=== PATIENT | female | born 1935 | race Caucasian/White ===

== ENCOUNTER 2016-10-19 12:35 | Day surgery (SDC) | payer MEDICARE ==
[2016-10-17 09:44] VITALS: BMI 24.6
[~2016-10-19 12:35] MED LIST: LACTATED RINGERS 1,000 ML IV SCH; LIDOCAINE 1% 20 ML VIAL (10MG/ML) FOR IV START INTRADERMA PRN
[2016-10-19 12:51] VITALS: TEMP 97
[2016-10-19] MEDS ORDERED: GLUCAGON 1 MG/ML VIAL ONE (13:40)
[2016-10-19] MEDS ORDERED: PROPOFOL 10 MG/ML 20 ML VIAL IV ONE (13:40)
--- NOTE | 2016-10-19 13:40 | P.GSHP ---
History of Present Illness H&P Date: 10/19/16 Chief Complaint: GERD, GI bleed This is a 81-year-old female referred from Dr. Nino Dominguez. Patient presents today for EGD and colonoscopy. She's had issues with GERD and melanotic stools. - Constitutional Constitutional: Reports as per HPI Past Medical History Past Medical History: Hyperlipidemia, Hypertension Additional Past Medical History / Comment(s): MACULAR DEGENERATION (DRY), History of Any Multi-Drug Resistant Organisms: None Reported Past Surgical History: Breast Surgery, Tonsillectomy Additional Past Surgical History / Comment(s): BREAST BIOPSY, surgery for hiatal hernia, jazmin cataracts Past Anesthesia/Blood Transfusion Reactions: No Reported Reaction Past Psychological History: No Psychological Hx Reported Smoking Status: Never smoker Past Alcohol Use History: Occasional Past Drug Use History: None Reported - Past Family History Brother(s) Family Medical History: Cancer Father Additional Family Medical History / Comment(s): POSSIBLE PE Medications and Allergies Home Medications Medication Instructions Recorded Confirmed Type Ascorbic Acid [Vitamin C] 500 mg PO DAILY 02/20/15 10/19/16 History Losartan-Hctz 50-12.5 mg [Hyzaar 1 each PO QAM 02/20/15 10/19/16 History 50-12.5] Multivitamins, Thera [Multivitamin 1 each PO DAILY@1200 02/20/15 10/19/16 History (formulary)] Simvastatin [Zocor] 20 mg PO HS 02/20/15 10/19/16 History Niacin 500 mg PO DAILY 03/19/15 10/19/16 History Aspirin 325 mg PO DAILY 10/17/16 10/19/16 History Calcium Carbonate [Calcium] 600 mg PO DAILY 10/17/16 10/19/16 History Magnesium Oxide [Magnesium] 500 mg PO DAILY 10/17/16 10/19/16 History Vit C/E/Zn/Coppr/Lutein/Zeaxan 1 each PO DAILY 10/17/16 10/19/16 History [Preservision Areds 2 Softgel] Allergies Allergy/AdvReac Type Severity Reaction Status Date / Time No Known Allergies Allergy Verified 10/17/16 09:35 Surgical - Exam Vital Signs Temp Pulse Resp BP Pulse Ox 97.0 F L 84 16 141/81 97 10/19/16 12:50 10/19/16 12:50 10/19/16 12:50 10/19/16 12:50 10/19/16 12:50 - General well developed, no distress - Eyes PERRL - ENT normal pinna - Neck no masses - Respiratory normal expansion - Cardiovascular Rhythm: regular - Abdomen Abdomen: soft, non tender Assessment and Plan Plan: GERD, GI bleed. We'll perform colonoscopy.
--- NOTE | 2016-10-19 14:06 | P.OP ---
Date of Procedure: 10/19/16 Preoperative Diagnosis: GERD GI bleed Postoperative Diagnosis: Mild antral gastritis No evidence of hiatal hernia Severe Diverticulosis Procedure(s) Performed: EGD Colonoscopy Implants: Anesthesia: MAC Surgeon: James Hart Pathology: other (Antrum, esophagus) Condition: stable Disposition: PACU Indications for Procedure: Operative Findings: Description of Procedure: The patient's placed on the endoscopy table lateral position. She received IV sedation. The gastroscope some placed oropharynx passed in the esophagus and stomach. The scope was then placed through the pylorus. The first and second portion of the duodenum appeared normal. Scope was then brought back and the antrum and this appeared mildly inflamed. A biopsies performed. Scope was unretroflexed and remainder stomach appeared normal. There is no evidence of a hiatal hernia. The GE junction was at 40 cm. The distal esophagus appeared minimally inflamed and a biopsies performed. The proximal esophagus appeared normal. Scope was withdrawn for patient. Next digital rectal exam was performed which revealed a small external hemorrhoid the flexible colonoscope was then placed patient anus and passed throughout the entire colon. The ileocecal valve was visualized. The cecum, ascending transverse colon appeared normal. In the descending and sigmoid colon there is moderate to severe diverticulosis noted in the sigmoid colon there is extensive diverticular changes. The scope was then brought back the rectum and this appeared normal. Scope was withdrawn for patient.
[2016-10-19 14:32] VITALS: BP 131/79; PULSE 80; RESP 18
== END 2016-10-19 14:41 | disposition home or self-care (01) ==
LOC: ORWHC2ENDO 12:35
PROVIDERS: ATTEND Surgery
DX: K29.50 Unspecified chronic gastritis without bleeding (principal); K57.30 Diverticulosis of large intestine without perforation or abscess without bleeding; K20.9 Esophagitis, unspecified; K64.4 Residual hemorrhoidal skin tags; Z87.19 Personal history of other diseases of the digestive system; E78.5 Hyperlipidemia, unspecified; I10 Essential (primary) hypertension; H35.30 Unspecified macular degeneration; Z79.82 Long term (current) use of aspirin; Z79.899 Other long term (current) drug therapy
CPT/HCPCS: 88305; 88342; 45378; 43239; J1610; J2704

== ENCOUNTER 2017-02-16 08:59 | Day surgery (SDC) | payer MEDICARE ==
[2017-02-16 09:20] VITALS: TEMP 96.3
[2017-02-16] MEDS ORDERED: LACTATED RINGERS 1,000 ML IV ONE (09:29)
[2017-02-16] MEDS ORDERED: LIDOCAINE 1% 20 ML VIAL (10MG/ML) FOR IV START INTRADERMA ONE (09:29)
[2017-02-16] MEDS ORDERED: PROPOFOL 10 MG/ML 20 ML VIAL IV ONE (09:41)
--- NOTE | 2017-02-16 09:58 | P.GSHP ---
History of Present Illness H&P Date: 02/16/17 Chief Complaint: Epigastric pain This is a 81-year-old female who's had complaints of epigastric pain. Patient presents today for EGD to [facility] for possible gastritis. Past Medical History Past Medical History: Hyperlipidemia, Hypertension Additional Past Medical History / Comment(s): MACULAR DEGENERATION (DRY), H PYLORI History of Any Multi-Drug Resistant Organisms: None Reported Past Surgical History: Breast Surgery, Tonsillectomy Additional Past Surgical History / Comment(s): BREAST BIOPSY, surgery for hiatal hernia, jazmin cataracts Past Anesthesia/Blood Transfusion Reactions: No Reported Reaction Past Psychological History: No Psychological Hx Reported Smoking Status: Never smoker Past Alcohol Use History: Occasional Past Drug Use History: None Reported - Past Family History Brother(s) Family Medical History: Cancer Father Additional Family Medical History / Comment(s): POSSIBLE PE Medications and Allergies Home Medications Medication Instructions Recorded Confirmed Type Ascorbic Acid [Vitamin C] 500 mg PO DAILY 02/20/15 02/16/17 History Losartan-Hctz 50-12.5 mg [Hyzaar 1 each PO QAM 02/20/15 02/16/17 History 50-12.5] Multivitamins, Thera [Multivitamin 1 each PO DAILY@1200 02/20/15 02/16/17 History (formulary)] Simvastatin [Zocor] 20 mg PO HS 02/20/15 02/16/17 History Niacin 500 mg PO DAILY 03/19/15 02/16/17 History Aspirin 325 mg PO DAILY 10/17/16 02/16/17 History Calcium Carbonate [Calcium] 600 mg PO DAILY 10/17/16 02/16/17 History Magnesium Oxide [Magnesium] 500 mg PO DAILY 10/17/16 02/16/17 History Vit C/E/Zn/Coppr/Lutein/Zeaxan 1 each PO DAILY 10/17/16 02/16/17 History [Preservision Areds 2 Softgel] Naproxen Sodium [Aleve] 1 tab PO DAILY 02/16/17 02/16/17 History Allergies Allergy/AdvReac Type Severity Reaction Status Date / Time No Known Allergies Allergy Verified 02/16/17 09:15 Surgical - Exam Vital Signs Temp Pulse Resp BP Pulse Ox 96.3 F L 74 16 121/69 73 L 02/16/17 09:19 02/16/17 09:19 02/16/17 09:19 02/16/17 09:19 02/16/17 09:19 - General well developed, no distress - Eyes PERRL - ENT normal pinna - Neck no masses - Respiratory normal expansion - Cardiovascular Rhythm: regular - Abdomen Abdomen: soft, non tender Assessment and Plan Plan: Epigastric pain, possible gastritis. We'll perform EGD.
--- NOTE | 2017-02-16 10:02 | P.OP ---
Date of Procedure: 02/16/17 Preoperative Diagnosis: Epigastric pain Postoperative Diagnosis: Antral gastritis Procedure(s) Performed: EGD Anesthesia: MAC Surgeon: James Hart Pathology: other (Antrum, esophagus) Condition: stable Disposition: PACU Description of Procedure: The patient's placed on the endoscopy table in the lateral position. She received IV sedation. The gastroscope placed oropharynx and passed in the esophagus and into the stomach. The scope was then placed through the pylorus. The first and second portion of the duodenum appeared normal. The scope was then brought back the antrum and this appeared moderately inflamed. A biopsies was performed. The scope was retroflexed and remainder of the stomach appeared normal. There was no significant hiatal hernia. Patient a previous fundoplication wrap and this appeared to be in the appropriate position. The distal esophagus appeared normal. The GE junction was at 47 is. The proximal esophagus appeared normal. Scope was withdrawn for patient.
[2017-02-16 10:20] VITALS: BP 159/73; PULSE 71; RESP 16
--- NOTE | 2017-02-16 13:17 | NM ---
EXAMINATION TYPE: NM hepatobiliary w EF DATE OF EXAM: 02/16/2017 COMPARISON: NONE HISTORY: Epigastric pain TECHNIQUE: After the intravenous administration of 5.5 mCi Tc 99m Mebrofenin hepatobiliary scintigrap hy is performed. Immediate images post injection. FINDINGS: There is satisfactory initial accumulation of tracer by the liver. The gallbladder is visualized wit hin 22 minutes. At one hour 8 ounces of oral ensure plus is given to mimic CCK and gallbladder ejec tion fraction is calculated at 90 %, in the normal range. Therefore there is no scintigraphic eviden ce of cystic or common bile duct obstruction to suggest acute cholecystitis or gallbladder dyskinesia . IMPRESSION: No evidence of acute cholecystitis, chronic cholecystitis or biliary dyskinesia with a ga llbladder ejection fraction of 90%.
== END 2017-02-16 10:40 | disposition home or self-care (01) ==
LOC: ORWHC2ENDO 08:59
PROVIDERS: ATTEND Surgery
DX: K29.50 Unspecified chronic gastritis without bleeding (principal); E78.5 Hyperlipidemia, unspecified; I10 Essential (primary) hypertension; H35.3190 Nonexudative age-related macular degeneration, unspecified eye, stage unspecified; Z79.82 Long term (current) use of aspirin; Z79.1 Long term (current) use of non-steroidal anti-inflammatories (NSAID); Z79.899 Other long term (current) drug therapy
CPT/HCPCS: 88305; 88342; 78226; 43239; A9537; J2704